=== PATIENT | female | born 1965 | race Caucasian/White ===

== ENCOUNTER 2017-12-04 10:50 | Inpatient (IN) | payer OTHER ==
[2017-11-27 14:19] LABS: BASOPHILS % (AUTO) 0.5 % (0-1); EOSINOPHILS # (AUTO) 0.3 X10'3 (0-0.9); LYMPHOCYTES % (AUTO) 22.7 % (21-51); MEAN CORPUSCULAR HEMOGLOBIN 29.6 PG (27.0-31.0); MEAN CORPUSCULAR HGB CONC 33.9 % (33.0-36.5); MEAN CORPUSCULAR VOLUME 87.3 FL (78-98); MEAN PLATELET VOLUME 7.7 FL (7.4-10.4); MONOCYTES # (AUTO) 0.5 X10'3 (0-0.9); MONOCYTES % (AUTO) 5.1 % (2-12); NEUTROPHILS # (AUTO) 6.2 X10'3 (1.8-7.7); NEUTROPHILS % (AUTO) 68.7 % (42-75); PRE OP HEMATOCRIT 41.3 % (35.0-45.0); PRE OP PLATELET COUNT 403 X10'3 (140-440); RED BLOOD COUNT 4.73 X10'6 (4.20-5.60); RED CELL DISTRIBUTION WIDTH 13.3 % (11.5-14.5)
[2017-11-27 14:30] LABS: PRE OP INR 0.9 INR; PRE OP PROTIME 9.8 SECONDS (9.0-12.0)
[2017-11-27 14:43] LABS: ALBUMIN 3.6 G/DL (3.4-5.0); ALKALINE PHOSPHATASE 101 IU/L (46-116); BLOOD UREA NITROGEN 13 MG/DL (7-18); CALCIUM 9.2 MG/DL (8.5-10.1); CHLORIDE 106 MMOL/L (99-107); PRE OP ALT 27 U/L (30-65); PRE OP ANION GAP 10 (8-16); PRE OP AST 21 U/L (10-37); PRE OP BILIRUB, TOTAL 0.3 MG/DL (0.0-1.0); PRE OP GLUCOSE 119 MG/DL (70-104); PRE OP POTASSIUM 3.7 MMOL/L (3.4-5.1); PRE OP SODIUM 144 MMOL/L (135-145); TOTAL CARBON DIOXIDE 28.4 MMOL/L (24-32); TOTAL PROTEIN 7.3 G/DL (6.4-8.2); eGFR 58 ML/MIN
[~2017-12-04] VITALS: Ht 152.4 cm; Wt 82.0 kg
[~2017-12-04 10:50] MED LIST: ACET-2119 PO; ALBU8HFA PO; BUPR150T8 PO; CETI10TA18 PO; LOSA25TA96 PO; ZOLP5TAB8 PO
[2017-12-05] VITALS (21 sets, daily range): BP systolic 107–146; BP diastolic 53–88
[2017-12-05] MEDS ORDERED: ringers solution, lacted 1,000 ML IV SCH ×2 (05:00→11:35)
[2017-12-05] MEDS ORDERED: VANCOMYCIN INJ 1000 MG in NORMAL SALINE 250ml IV.SOLN IV ONE (05:30)
[2017-12-05] MEDS ORDERED: famotidine 20mg tablet PO ONE (05:30)
[2017-12-05] MEDS ORDERED: albuterol 2.5 MG/3 ML nebule NEB ONE (05:30)
[2017-12-05] MEDS ORDERED: Cefazolin 2GM/100ML NS IVPB IV ONE (05:30)
[2017-12-05] MEDS ORDERED: tranexamic acid inj. 800 MG in normal saline 100ml IV soln 92 ML IV ONE ×2 (05:30→06:30)
[2017-12-05] MEDS ORDERED: LIDOcaine 1% (10mg/ml) 2ml vial ONE (06:22)
[2017-12-05] MEDS ORDERED: ketorolac trometh. 30mg/ml inj. ONE (06:57)
[2017-12-05] MEDS ORDERED: ROPIVAcaine 0.5% (5mg/ml) 30ml vial ONE (06:58)
[2017-12-05] MEDS ORDERED: vancomycin 1,000mg inj ONE (06:58)
[2017-12-05] MEDS ORDERED: fentaNYL/PF 50MCG/1 ML 2ML syringe ONE (07:36)
[2017-12-05] MEDS ORDERED: midazolam 2 mg/2 ml injection ONE (07:37)
[2017-12-05] MEDS ORDERED: LIDOcaine 2% (20mg/ml) 5ml vial ONE (07:38)
[2017-12-05] MEDS ORDERED: propofol inj 20 ML IV ONE (07:38)
[2017-12-05] MEDS ORDERED: morphine /PF 1mg/ml 10ml inj. ONE (07:40)
[2017-12-05] MEDS ORDERED: BUPIVAcaine 0.5% inj/PF 30 ml vial ONE (07:45)
[2017-12-05] MEDS ORDERED: sevoflurane 250ml liquid IH ONE (07:55)
[2017-12-05] MEDS ORDERED: ePHEDrine 50MG/ML INJ. ONE (08:20)
[2017-12-05] MEDS ORDERED: dexamethasone sod phosphate 4mg/ml inj. ONE (09:09)
[2017-12-05] MEDS ORDERED: ondansetron/PF 4mg/2ml inj ONE (09:10)
[2017-12-05] MEDS ORDERED: acetaminophen 325mg tablet PO PRN (11:25)
[2017-12-05] MEDS ORDERED: bisacodyl 10mg suppository rectal RC PRN (11:25)
[2017-12-05] MEDS ORDERED: oxyCODONE IR 5mg (immed. release) tablet PO PRN (11:25)
[2017-12-05] MEDS ORDERED: diphenhydrAMINE 25mg capsule PO PRN (11:25)
[2017-12-05] MEDS ORDERED: ondansetron/PF 4mg/2ml inj IV PRN ×2 (11:25→11:35)
[2017-12-05] MEDS ORDERED: HYDROmorphone inj. 0.5 MG/0.5 ML DISP.SYRIN IV PRN ×3 (11:25→11:35)
[2017-12-05] MEDS ORDERED: magnesium hydroxide 30ml (MOM) UD suspension PO PRN (11:25)
[2017-12-05] MEDS ORDERED: zolpidem 5mg tablet PO PRN (11:25)
[2017-12-05] MEDS ORDERED: fentaNYL/PF 50MCG/1 ML 2ML syringe IV PRN (11:35)
[2017-12-05] MEDS ORDERED: meperidine/PF 50mg/ml syringe IV PRN (11:35)
[2017-12-05] MEDS: diphenhydrAMINE 25mg capsule PO PRN ×2 (13:13→22:00)
[2017-12-05] MEDS ORDERED: acetaminophen 325mg tablet PO SCH (14:00)
[2017-12-05] MEDS ORDERED: tranexamic acid inj. 820 MG in normal saline 100ml IV soln 100 ML IV ONE (14:30)
[2017-12-05] MEDS: potassium cl 20mEq in 1/2 NS 1,000 ML IV SCH ×2 (15:07→21:55)
[2017-12-05] MEDS: ceFAZolin 1GM/D5W- ADD-VANTAGE 50 ML IV SCH (16:14)
[2017-12-05] MEDS ORDERED: vancomycin/NS 1 GM ADD-VANTAGE 250 ML IV SCH (20:00)
[2017-12-05] MEDS: sennosides 8.6mg tablet PO SCH ×2 (21:00→21:58)
[2017-12-05] MEDS: oxyCODONE IR 5mg (immed. release) tablet PO PRN (22:39)
[2017-12-06] MEDS: ceFAZolin 1GM/D5W- ADD-VANTAGE 50 ML IV SCH (00:13)
[2017-12-06 02:01] VITALS: BP 100/50
[2017-12-06] MEDS: potassium cl 20mEq in 1/2 NS 1,000 ML IV SCH ×3 (03:22→19:22)
[2017-12-06 05:48] LABS: BASOPHILS % (AUTO) 0.1 % (0-1); EOSINOPHILS # (AUTO) 0.1 X10'3 (0-0.9); EOSINOPHILS % (AUTO) 1.2 % (0-6); HEMATOCRIT 30.9 % (35.0-45.0); HEMOGLOBIN 10.4 g/dl (12.0-16.0); LYMPHOCYTES # (AUTO) 1.2 X10'3 (1.1-4.8); LYMPHOCYTES % (AUTO) 9.8 % (21-51); MEAN CORPUSCULAR HEMOGLOBIN 29.6 PG (27.0-31.0); MEAN CORPUSCULAR HGB CONC 33.6 % (33.0-36.5); MEAN CORPUSCULAR VOLUME 88.1 FL (78-98); MEAN PLATELET VOLUME 7.7 FL (7.4-10.4); MONOCYTES # (AUTO) 0.8 X10'3 (0-0.9); MONOCYTES % (AUTO) 6.7 % (2-12); NEUTROPHILS # (AUTO) 9.7 X10'3 (1.8-7.7); NEUTROPHILS % (AUTO) 82.2 % (42-75); PLATELET COUNT 321 X10'3 (140-440); RED BLOOD COUNT 3.51 X10'6 (4.20-5.60); RED CELL DISTRIBUTION WIDTH 13.5 % (11.5-14.5); WHITE BLOOD COUNT 11.8 X10'3 (4.5-11.0)
[2017-12-06 06:05] LABS: ANION GAP 6 (8-16); CHLORIDE 108 MMOL/L (99-107); SODIUM 142 MMOL/L (135-145); TOTAL CARBON DIOXIDE 28.2 MMOL/L (24-32)
[2017-12-06 06:45] VITALS: BP 119/55
[2017-12-06] MEDS: cetirizine 10mg tablet PO SCH (08:18)
[2017-12-06] MEDS: aspirin 325mg tablet PO SCH (08:18)
[2017-12-06] MEDS: losartan 25mg tablet PO SCH (08:18)
[2017-12-06] MEDS: buPROPion SR 150mg tablet PO SCH (08:19)
[2017-12-06] MEDS: oxyCODONE IR 5mg (immed. release) tablet PO PRN ×3 (10:23→15:22)
[2017-12-06 10:47] VITALS: BP 117/57
[2017-12-06] MEDS ORDERED: HYDROmorphone 2mg tablet PO PRN (16:40)
[2017-12-06] MEDS ORDERED: oxyCODONE/APAP 10/325mg tablet PO PRN (16:40)
[2017-12-06] MEDS: oxyCODONE/APAP 10/325mg tablet PO PRN ×2 (17:10→20:53)
[2017-12-06 18:00] VITALS: BP 135/70
[2017-12-06] MEDS: ketorolac trometh. 30mg/ml inj. IV SCH (19:42)
[2017-12-06] MEDS ORDERED: celeCOXIB 100mg capsule PO SCH (20:00)
[2017-12-06 22:00] VITALS: BP 130/71
[2017-12-07] MEDS: oxyCODONE/APAP 10/325mg tablet PO PRN ×3 (01:08→09:09)
[2017-12-07] MEDS: diphenhydrAMINE 25mg capsule PO PRN (01:11)
[2017-12-07] MEDS: ketorolac trometh. 30mg/ml inj. IV SCH ×2 (01:56→08:05)
[2017-12-07] MEDS: albuterol 2.5 MG/3 ML nebule NEB PRN ×2 (04:39→08:57)
[2017-12-07 06:00] VITALS: BP_SYST 109; BP_SYST 128; BP_DIAS 39; BP_DIAS 65
[2017-12-07 06:04] LABS: BASOPHILS # (AUTO) 0.1 X10'3 (0-0.2); BASOPHILS % (AUTO) 0.9 % (0-1); EOSINOPHILS # (AUTO) 0.3 X10'3 (0-0.9); HEMATOCRIT 31.1 % (35.0-45.0); HEMOGLOBIN 10.6 g/dl (12.0-16.0); LYMPHOCYTES # (AUTO) 2.2 X10'3 (1.1-4.8); LYMPHOCYTES % (AUTO) 22.3 % (21-51); MEAN CORPUSCULAR HEMOGLOBIN 29.7 PG (27.0-31.0); MEAN CORPUSCULAR VOLUME 87.1 FL (78-98); MEAN PLATELET VOLUME 8.1 FL (7.4-10.4); MONOCYTES # (AUTO) 0.6 X10'3 (0-0.9); MONOCYTES % (AUTO) 6.7 % (2-12); NEUTROPHILS # (AUTO) 6.5 X10'3 (1.8-7.7); NEUTROPHILS % (AUTO) 67.1 % (42-75); PLATELET COUNT 318 X10'3 (140-440); RED BLOOD COUNT 3.57 X10'6 (4.20-5.60); RED CELL DISTRIBUTION WIDTH 13.8 % (11.5-14.5); WHITE BLOOD COUNT 9.7 X10'3 (4.5-11.0)
[2017-12-07] MEDS: buPROPion SR 150mg tablet PO SCH (08:03)
[2017-12-07] MEDS: losartan 25mg tablet PO SCH (08:03)
[2017-12-07] MEDS: aspirin 325mg tablet PO SCH (08:03)
[2017-12-07] MEDS: cetirizine 10mg tablet PO SCH (08:03)
[2017-12-07] MEDS ORDERED: ASPI-1 PO (08:31)
[2017-12-07 09:12] VITALS: BP 109/39
[2017-12-07] MEDS ORDERED: acetaminophen 325mg tablet PO PRN (11:25)
[2017-12-12] MEDS ORDERED: celeCOXIB 100mg capsule PO SCH (08:00)
== END 2017-12-07 11:22 | disposition home health service (06) | DRG 467 ==
LOC: EDSTATUS 10:50 → PAS IN 12-05 05:39 → EDSTATUS 12-05 09:00 → ORTHO 4S 12-05 13:06
PROVIDERS: ADMIT Orthopaedic Surgery; ATTEND Orthopaedic Surgery
PROC: 0SPC0JZ Removal of Synthetic Substitute from Right Knee Joint, Open Approach (ICD-10-PCS; 2017-12-05)
PROC: 8E0YXBZ Computer Assisted Procedure of Lower Extremity (ICD-10-PCS; 2017-12-05)
PROC: 8E0Y0CZ Robotic Assisted Procedure of Lower Extremity, Open Approach (ICD-10-PCS; 2017-12-05)
PROC: 3E0T3BZ Introduction of Anesthetic Agent into Peripheral Nerves and Plexi, Percutaneous Approach (ICD-10-PCS; 2017-12-05)
PROC: 0SRC0J9 Replacement of Right Knee Joint with Synthetic Substitute, Cemented, Open Approach (ICD-10-PCS; principal; 2017-12-05 07:55)
DX: T84.89XA Other specified complication of internal orthopedic prosthetic devices, implants and grafts, initial encounter (principal); D62 Acute posthemorrhagic anemia; G47.30 Sleep apnea, unspecified; M06.9 Rheumatoid arthritis, unspecified; Y83.1 Surgical operation with implant of artificial internal device as the cause of abnormal reaction of the patient, or of later complication, without mention of misadventure at the time of the procedure; I10 Essential (primary) hypertension; F32.9 Major depressive disorder, single episode, unspecified; J45.909 Unspecified asthma, uncomplicated; Z88.2 Allergy status to sulfonamides; Z88.8 Allergy status to other drugs, medicaments and biological substances; Z79.899 Other long term (current) drug therapy; Y92.89 Other specified places as the place of occurrence of the external cause
CPT/HCPCS: 36415; 71046; 80051; 80053; 85025; 85610; 85730; 87070; 94640; 94760; 97110; 97116; 97162; 97530; A6255; A6449; A6455; A7000; C1713; C1758; C1776; J0690; J1100; J1885; J2001; J2250; J2274; J2405; J2704; J2795; J3010; J3370; J3490; J7030; J7120; Q0163

== ENCOUNTER 2023-03-17 06:56 | Day surgery (SDC) | payer OTHER ==
[2023-03-10 10:53] LABS: BASOPHILS % (AUTO) 0.6 % (0-1); EOSINOPHILS # (AUTO) 0.2 X10'3 (0-0.9); EOSINOPHILS % (AUTO) 2.9 % (0-6); LYMPHOCYTES # (AUTO) 1.6 X10'3 (1.1-4.8); LYMPHOCYTES % (AUTO) 22.3 % (21-51); MEAN CORPUSCULAR HEMOGLOBIN 29.3 PG (27.0-31.0); MEAN CORPUSCULAR HGB CONC 32.8 g/dL (33.0-36.5); MEAN CORPUSCULAR VOLUME 89.3 FL (78-98); MEAN PLATELET VOLUME 7.7 FL (7.4-10.4); MONOCYTES # (AUTO) 0.6 X10'3 (0-0.9); MONOCYTES % (AUTO) 7.8 % (2-12); NEUTROPHILS # (AUTO) 4.9 X10'3 (1.8-7.7); NEUTROPHILS % (AUTO) 66.4 % (42-75); PRE OP HEMATOCRIT 41.7 % (35.0-45.0); PRE OP HEMOGLOBIN 13.7 g/dL (12.0-16.0); PRE OP PLATELET COUNT 342 X10'3 (140-440); PRE OP WHITE BLOOD COUNT 7.4 10'3 (4.8-10.8); RED BLOOD COUNT 4.67 X10'6 (4.20-5.60); RED CELL DISTRIBUTION WIDTH 13.8 % (11.5-14.5)
[2023-03-10 11:09] LABS: ALBUMIN 3.5 G/DL (3.4-5.0); ALKALINE PHOSPHATASE 77 IU/L (46-116); BLOOD UREA NITROGEN 17 MG/DL (7-18); BUN/CREATININE RATIO 17.7 (10.0-20.0); CALCIUM 9.5 MG/DL (8.5-10.1); CHLORIDE 106 MMOL/L (99-107); CREATININE 0.96 MG/DL (0.40-0.90); PRE OP ALT 22 U/L (30-65); PRE OP ANION GAP 12 (8-16); PRE OP AST 21 U/L (10-37); PRE OP BILIRUB, TOTAL 0.3 MG/DL (0.0-1.0); PRE OP GLUCOSE 150 MG/DL (70-104); PRE OP POTASSIUM 4.1 MMOL/L (3.4-5.1); PRE OP SODIUM 143 MMOL/L (135-145); TOTAL CARBON DIOXIDE 24.8 MMOL/L (24-32); TOTAL PROTEIN 6.9 G/DL (6.4-8.2); eGFR 60 ML/MIN
[~2023-03-17] VITALS: Ht 152.4 cm; Wt 66.0 kg
[2023-03-17] VITALS (10 sets, daily range): BP systolic 131–157; BP diastolic 65–88; PULSE 62–91; RESP 10–16; TEMP 98; O2SAT 93–99
[~2023-03-17 06:56] MED LIST changes: +ALBU8HFA INH; -ALBU8HFA PO; -BUPR150T8 PO; -CETI10TA18 PO; +CETI10TA19 PO; +DICL100G59 TOP; +SALM50DI2 INH; -ZOLP5TAB8 PO; +cefazolin 2gm/D5W 100mL 100 ML IV ONE; +famotidine 20mg tablet PO ONE; +ringers solution, lacted 1,000 ML IV SCH
[2023-03-17] MEDS ORDERED: ondansetron/PF 4mg/2ml inj IV PRN (09:35)
[2023-03-17] MEDS ORDERED: ringers solution, lacted 1,000 ML IV SCH (09:35)
[2023-03-17] MEDS ORDERED: morphine 4 MG/ML inj SYRINge IV PRN (09:35)
[2023-03-17] MEDS ORDERED: morphine 2 MG/ML inj. syringe IV PRN (09:35)
[2023-03-17] MEDS ORDERED: meperidine/PF 25mg/ml syringe IV PRN ×3 (09:35)
[2023-03-17] MEDS ORDERED: propofol inj 20 ML IV ONE (09:47)
[2023-03-17] MEDS ORDERED: ROPIVAcaine 0.5% (5mg/ml) 30ml vial ONE (09:47)
[2023-03-17] MEDS ORDERED: MIDAZolam 1 MG/ML 5ML VIAL ONE (09:51)
[2023-03-17] MEDS ORDERED: fentaNYL/PF 50MCG/1 ML 2ML syringe ONE (09:51)
[2023-03-17] MEDS ORDERED: bacitracin 15gm ointment TP ONE (10:10)
[2023-03-17] MEDS ORDERED: ondansetron/PF 4mg/2ml inj ONE (10:37)
[2023-03-17] MEDS ORDERED: sevoflurane 250ml liquid IH ONE (10:37)
[2023-03-17] MEDS ORDERED: LIDOcaine 2% (20mg/ml) 5ml vial ONE (10:37)
[2023-03-17] MEDS ORDERED: BUPIVAcaine/PF 7.5mg/ml (0.75%) 10ml vial ONE (11:12)
[2023-03-17] MEDS ORDERED: dexamethasone sod phosphate 4mg/ml inj. ONE (11:12)
--- NOTE | 2023-03-17 12:30 | NUR ---
Received from OR via [facility], accompanied by Anesthesiologist and report given by [facility]IM[facility] Anesthesiologist. PATIENT WAKING UP, NO S/S OF PAIN, V/S WNL, SCD ON, 18G TO LEFT HAND, DRESSING to LEFT KNEE C/D/I with SURGICAL BOOT. Addendum: 03/17/23 at 1252 by Homar Slater RN Amended: Links added.
--- NOTE | 2023-03-17 13:55 | NUR ---
ALL DISCHARGE CRITERIA HAS BEEN MET. VSS, PAIN AT A TOLERABLE LEVEL, ABLE TO SAFELY AMBULATE AND TRANSFER SELF. IV TAKEN OUT WITHOUT ANY COMPLICATIONS. ALL DISCHARGE INSTRUCTIONS COVERED WITH PATIENT AND ALL QUESTIONS ANSWERED. PATIENT TAKEN OUT VIA WHEELCHAIR WITH ALL BELONGINGS TO PERSONAL VEHICLE WHERE FRIEND DROVE PATIENT HOME. Addendum: 03/17/23 at 1401 by Homar Slater RN Amended: Links added.
== END 2023-03-17 13:55 | disposition home or self-care (01) ==
LOC: PAS 06:56
PROVIDERS: ATTEND Podiatrist Foot & Ankle Surgery
DX: M25.372 Other instability, left ankle (principal); M65.872 Other synovitis and tenosynovitis, left ankle and foot; M19.072 Primary osteoarthritis, left ankle and foot; J45.909 Unspecified asthma, uncomplicated; I10 Essential (primary) hypertension; G89.18 Other acute postprocedural pain; E66.9 Obesity, unspecified; Z68.28 Body mass index [BMI] 28.0-28.9, adult; Z86.14 Personal history of Methicillin resistant Staphylococcus aureus infection; Z79.899 Other long term (current) drug therapy; Z88.2 Allergy status to sulfonamides; Z88.8 Allergy status to other drugs, medicaments and biological substances; Z98.890 Other specified postprocedural states; Z72.89 Other problems related to lifestyle
CPT/HCPCS: 27698; 29895; 64445; 64447; 80053; 82948; 85025; A6222; C1713; J0690; J1100; J2175; J2250; J2405; J2704; J2795; J3010; J3490; J7120; Z7506; Z7508; Z7512; A4618; A6449; A7000

== ENCOUNTER 2024-06-06 09:15 | Outpatient (CLI) | payer OTHER ==
[~2024-06-06 09:15] MED LIST changes: +LOSA-415 PO; -LOSA25TA96 PO; -cefazolin 2gm/D5W 100mL 100 ML IV ONE; -famotidine 20mg tablet PO ONE; -ringers solution, lacted 1,000 ML IV SCH
== END 2024-06-06 23:59 | disposition home or self-care (01) ==
LOC: MRI 09:15
PROVIDERS: ATTEND Physical Medicine & Rehabilitation
DX: M25.552 Pain in left hip (principal); G56.03 Carpal tunnel syndrome, bilateral upper limbs; Z96.651 Presence of right artificial knee joint
CPT/HCPCS: 73721